=== PATIENT | male | born 1950 | race Caucasian/White ===

== ENCOUNTER 2024-12-23 12:55 | Emergency (ER) | payer MEDICARE, BC ==
[~2024-12-23] VITALS: Ht 182.9 cm; Wt 98.3 kg
[2024-12-23] MEDS ORDERED: AMITRIPTYLINE H25 MG PO (13:36)
[2024-12-23] MEDS ORDERED: DIOVAN160 MG PO (13:37)
[2024-12-23] MEDS ORDERED: LIPITOR20 M1 PO (13:38)
[2024-12-23] MEDS ORDERED: QUESTRAN4 G1 PO (13:39)
[2024-12-23 13:47] LABS: BASO% 0.4 % (0-3); EOS% 2.2 % (0-8); HEMATOCRIT 47.1 % (39.0-50.0); HEMOGLOBIN 15.4 g/dl (14.0-18.0); IMMATURE GRANULOCYTES 1.3 % (0.0-5.0); MEAN CELL VOLUME 93.3 fL CALC (80.0-100.0); MEAN CORPUSCULAR HGB 30.5 pG CALC (26.0-32.0); MEAN CORPUSCULAR HGB CONC 32.7 g/dL CAL (32.0-36.0); MONO% 13.2 % (2-13); NEUT# 7.01 thou/uL (1.82-7.42); NEUT% 63.9 % (42-76); RED BLOOD COUNT 5.05 mill/uL (4.70-6.10); RED CELL DISTRI WIDTH 12.6 % (11.5-15.5)
[2024-12-23 13:56] LABS: ALKALINE PHOSPHATASE 60 u/l (38-126); ANION GAP 12 (6-22 (CALC)); BILIRUBIN, TOTAL 0.7 mg/dL (0.2-1.3); BUN 23 mg/dL (8-23); BUN/CREATININE RATIO 22 (12-20 (CALC)); CALCULATED LDLCHOLESTEROL 48 mg/dL (62-129 (CALC)); CARBON DIOXIDE 26 mmol/l (22-30); CHLORIDE 104 mmol/l (95-108); CHOLESTEROL HDL RATIO 3.8 (<4.4 (CALC)); CREATININE 1.1 mg/dL (0.7-1.3); ESTIMATED GFR 70 ML/MIN (>=90 (CALC)); HDL CHOLESTEROL 30 mg/dL (39.0-59.0); POTASSIUM 4.8 mmol/l (3.5-5.1); SGOT/AST 47 u/l (19-48); SODIUM 137 mmol/l (137-146); TOTAL CHOLESTEROL 111 mg/dl (0-199); TOTAL PROTEIN 6.4 g/dL (6.3-8.2); TOTAL TRIGLYCERIDES 168 mg/dl (0-149); VLDL CHOLESTROL 34 mg/dl (0-38 (CALC))
[2024-12-23 14:01] LABS: PROTHROMBIN TIME 10.9 SECONDS (9.0-12.5)
[2024-12-23 14:37] LABS: URINE BILIRUBIN - DIPSTICK Negative (NEGATIVE); URINE BLOOD DIPSTICK Negative (NEGATIVE); URINE COLOR Yellow; URINE GLUCOSE - DIPSTICK Negative (NEGATIVE); URINE KETONE Negative (NEGATIVE); URINE LEUK ESTERASE Negative (NEGATIVE); URINE NITRITE - DIPSTICK Negative (Negative); URINE PROTEIN - DIPSTICK Negative (NEG-TRACE); URINE UROBILINOGEN - DIPSTICK 0.2 E.U./dL (0.2)
[2024-12-23] MEDS ORDERED: ASPIRIN 81 MG/TAB PO ONE (15:20)
[2024-12-23 15:46] VITALS: BP 152/89
[2024-12-23 16:30] VITALS: BP 152/89
== END 2024-12-23 16:10 | disposition short-term general hospital (02) ==
LOC: ED 12:55
PROVIDERS: Emergency Medicine
DX: I77.74 Dissection of vertebral artery (principal); I10 Essential (primary) hypertension
CPT/HCPCS: Q9967